=== PATIENT | female | born 2005 | race Caucasian/White ===

== ENCOUNTER → 2024-05-31 | Emergency (ER) | payer OTHER ==
[~2024-05-31] VITALS: Ht 165.1 cm; Wt 45.4 kg
[~2024-05-31] MED LIST: 0.9 % SODIUM CHLORIDE 1,000 ML IV SCH; FAMOTIDINE/PF 20 MG/2 ML VIAL IV STA; LACTOBACILLUS ACIDOPHILUS 1 CAP CAP PO STA
[2024-05-31 11:27] LABS: HEMATOCRIT 43.4 % (36.0-45.00); MEAN CELL VOLUME 86.7 fL (80.00-100.00); MEAN CORPUSCULAR HGB CONC 34.6 g/dl (32.0-36.0); PLATELET COUNT 208 K/uL (150-450); RED BLOOD COUNT 5.01 M/uL (4.00-6.00); RED CELL DISTRIBUTION WIDTH 13.8 % (11.5-14.5)
[2024-05-31 11:54] LABS: ALBUMIN 4.1 gm/dL (3.4-5.0); BILIRUBIN TOTAL 0.87 mg/dL (0.3-1.2); CREATININE SERUM 0.75 mg/dL (0.55-1.02); GFR 98.52; GLOBULINA 3.6 G/DL (2.4-3.5); POTASSIUM 4.27 mEq/L (3.5-5.1); TOTAL PROTEIN 7.7 gm/dL (6.4-8.2)
== END | disposition left against medical advice (07) ==
LOC: ER 09:46 → EMR PED 09:46
PROVIDERS: Pediatrics
DX: K52.89 Other specified noninfective gastroenteritis and colitis (principal); E86.0 Dehydration; R63.0 Anorexia